=== PATIENT | male | born 1965 | race Two or more races ===

== ENCOUNTER 2017-12-24 01:37 | Inpatient (IN) | payer MEDICAID ==
[~2017-12-24] VITALS: Ht 170.2 cm; Wt 73.1 kg
[2017-12-24 01:44] VITALS: Ht 170.2 cm; Wt 73.1 kg
[2017-12-24 03:27] LABS: CARBON DIOXIDE 25.3 mmol/L (21-32); CHLORIDE SERUM 102 mmol/L (98-107); GFR1 > 60 mL/min; GLUCOSE SERUM 198 mg/dL (74-106); POTASSIUM SERUM 3.9 mmol/L (3.5-5.1); SODIUM SERUM 135 mmol/L (136-145)
[2017-12-24 03:30] LABS: BASOPHIL % 0.2 % (0-2); PLATELET COUNT 268 x10^3mcL (130-400); RED CELL DISTRIBUTION WIDTH 12.2 % (11.5-14.5)
[2017-12-24 03:32] LABS: ALKALINE PHOSPHATASE 138 U/L (46-116); ALT/SGPT 25 U/L (16-63); AMYLASE 62 U/L (25-115); AST/SGOT 14 U/L (15-37); BILIRUBIN TOTAL 0.3 mg/dL (0.20-1.00); LIPASE 245 IU/L (73-393)
[2017-12-24 05:30] LABS: UA SPECIFIC GRAVITY >=1.030 (1.005-1.035); microscopic required? YES; urine erythrocyte NEGATIVE (NEGATIVE)
[2017-12-24 06:38] VITALS: BP 144/100
[2017-12-24 09:22] LABS: CHOLESTEROL/HDL RATIO 4.9; MAGNESIUM 1.8 mg/dL (1.8-2.4); PHOSPHOROUS 2.9 mg/dL (2.5-4.9)
[2017-12-24 09:33] LABS: T3 TOTAL 0.91 ng/mL
[2017-12-24 09:37] VITALS: BP 149/95
[2017-12-24 10:07] VITALS: BP 146/98
[2017-12-24 10:18] LABS: FREE T4 0.84 ng/dL (0.76-1.46)
[2017-12-24 10:19] LABS: FREE THYROXINE INDEX 1.3 ug/dL (1.4-4.5); T4(THYROXINE) 4.2 ug/dL (4.7-13.3)
[2017-12-24 16:04] LABS: AMPHETAMINE QUAL UR POSITIVE (See below)
[2017-12-24 17:39] VITALS: BP 139/96
[2017-12-24 21:03] VITALS: BP 134/85
[2017-12-25 05:45] VITALS: BP 124/88
[2017-12-25 06:15] LABS: BASOPHIL % 0.4 % (0-2); PLATELET COUNT 231 x10^3mcL (130-400); RED CELL DISTRIBUTION WIDTH 12.8 % (11.5-14.5)
[2017-12-25 06:22] LABS: T3 TOTAL 0.97 ng/mL
[2017-12-25 06:28] LABS: CARBON DIOXIDE 23.3 mmol/L (21-32); CHLORIDE SERUM 105 mmol/L (98-107); CREATININE SERUM 0.7 mg/dL (0.7-1.3); GFR1 > 60 mL/min; GLUCOSE SERUM 116 mg/dL (74-106); MAGNESIUM 1.7 mg/dL (1.8-2.4); PHOSPHOROUS 2.9 mg/dL (2.5-4.9); POTASSIUM SERUM 3.7 mmol/L (3.5-5.1); SODIUM SERUM 137 mmol/L (136-145)
[2017-12-25 06:40] LABS: FREE T4 0.89 ng/dL (0.76-1.46); FREE THYROXINE INDEX 2.1 ug/dL (1.4-4.5); T4(THYROXINE) 5.9 ug/dL (4.7-13.3)
[2017-12-25 08:56] VITALS: BP 131/97
[2017-12-25 17:31] VITALS: BP 151/99
[2017-12-25 20:17] VITALS: BP 146/91
[2017-12-26 05:12] VITALS: BP 143/90
[2017-12-26 06:27] LABS: BASOPHIL % 0.5 % (0-2); PLATELET COUNT 242 x10^3mcL (130-400)
[2017-12-26 06:47] LABS: CALCIUM 8.4 mg/dL (8.5-10.1); CARBON DIOXIDE 25.8 mmol/L (21-32); CHLORIDE SERUM 104 mmol/L (98-107); CREATININE SERUM 0.8 mg/dL (0.7-1.3); GFR1 > 60 mL/min; GLUCOSE SERUM 120 mg/dL (74-106); PHOSPHOROUS 3.7 mg/dL (2.5-4.9); POTASSIUM SERUM 3.6 mmol/L (3.5-5.1); SODIUM SERUM 139 mmol/L (136-145)
[2017-12-26] MEDS ORDERED: FLA500 PO (08:10)
[2017-12-26 09:01] VITALS: BP 141/87
[2017-12-26 09:38] VITALS: BP 141/87
== END 2017-12-26 14:43 | disposition home or self-care (01) | DRG 244 ==
LOC: ED 01:37 → MU 05:25
PROVIDERS: Emergency Medicine; Family Medicine
DX: K57.32 Diverticulitis of large intestine without perforation or abscess without bleeding (principal); N17.0 Acute kidney failure with tubular necrosis; E11.65 Type 2 diabetes mellitus with hyperglycemia; N28.1 Cyst of kidney, acquired; N39.0 Urinary tract infection, site not specified; K57.90 Diverticulosis of intestine, part unspecified, without perforation or abscess without bleeding; I10 Essential (primary) hypertension; E78.5 Hyperlipidemia, unspecified; Z68.24 Body mass index [BMI] 24.0-24.9, adult
CPT/HCPCS: 83880; 84439; 87046; 87046-59; J1815; J1885; J1956; J2405; J3490; J7030; Q0092

== ENCOUNTER 2018-06-29 12:25 | Emergency (ER) | payer OTHER ==
[~2018-06-29] VITALS: Ht 165.1 cm; Wt 69.9 kg
[~2018-06-29 12:25] MED LIST: FLA500 PO
[2018-06-29 12:35] VITALS: Ht 165.1 cm; Wt 69.9 kg
[2018-06-29 14:31] VITALS: BP 142/90
== END 2018-06-29 14:31 | disposition home or self-care (01) ==
LOC: ED 12:25
DX: H10.9 Unspecified conjunctivitis (principal); I10 Essential (primary) hypertension; E11.9 Type 2 diabetes mellitus without complications

== ENCOUNTER 2019-06-26 14:23 | Emergency (ER) | payer MEDICAID ==
[~2019-06-26] VITALS: Ht 170.2 cm; Wt 63.5 kg
[2019-06-26 14:29] VITALS: Ht 170.2 cm; Wt 63.5 kg
[2019-06-26 16:40] VITALS: BP 147/88
== END 2019-06-26 16:40 | disposition home or self-care (01) ==
LOC: ED 14:23
DX: B34.9 Viral infection, unspecified (principal); J11.1 Influenza due to unidentified influenza virus with other respiratory manifestations; I10 Essential (primary) hypertension; E11.9 Type 2 diabetes mellitus without complications
CPT/HCPCS: 82962